=== PATIENT | female | born 1960 | race Caucasian/White ===

== ENCOUNTER 2017-01-28 16:34 | Emergency (ER) | payer OTHER ==
[~2017-01-28] VITALS: Ht 160 cm; Wt 112.0 kg
[~2017-01-28 16:34] MED LIST: 384 PO; A/B OTIC15 ML; ALAVERT10 M3 PO; ALLERGY10 MG PO; AMBIEN10 MG PO; AMBIENPAK10 MG PO; AMITRIPTYLINE H10 MG PO; AMITRIPTYLINE25 MG PO; ANTIVERT/2525 MG PO; APAP/HYDROCODON1 T13 PO; CARAFATE1 GM PO; CIPRO500 MG PO; CYCLOBENZAPRINE10 MG PO; DOC-Q-LACE PO; FLO4 PO; FLUTICASONE; FOLIC ACID PO; FOLIC ACID1 MG PO; GLU500 PO; IMITREX50 MG PO; KLOR-CON PO; LEVEMIR FLEX100 U/ML SQ; LEVEMIR100 U/M1 SQ; LINZESS145 MC1 PO; LINZESS145 MCG PO; MAG PO; MECLIZINE25 MG PO; METOCLOPRAMIDE10 MG PO; METOCLOPRAMIDE5 MG PO; MORPHINE SULFATE PO; NAMENDA10 M2 PO; NITROFURANTOIN100 M1 PO; OMEPRAZOLE PO; PAROXETINE HCL20 M1 PO; POTASSIUM CHLO10 MEQ PO; PRILOSEC40 MG PO; PROAIR PO; PROMETHAZINE12.5 M2 RC; PROPRANOLOL HCL40 MG PO; RANITIDINE300 MG PO; VENLAFAXINE100 MG PO; XAN5 PO; XANAX0.25 MG PO
[2017-01-28 23:05] VITALS: BP 119/75
== END 2017-01-28 19:00 | disposition home or self-care (01) ==
LOC: ED 16:34
DX: R60.0 Localized edema (principal); E66.9 Obesity, unspecified; M06.9 Rheumatoid arthritis, unspecified; M79.7 Fibromyalgia; K76.0 Fatty (change of) liver, not elsewhere classified; Z87.442 Personal history of urinary calculi

== ENCOUNTER 2017-09-17 04:09 | Inpatient (IN) | payer OTHER ==
[~2017-09-17] VITALS: Ht 160 cm; Wt 103.0 kg
[2017-09-17 05:29] LABS: microscopic required? YES; urine erythrocyte 2+ (NEGATIVE)
[2017-09-17 05:29] LABS: CARBON DIOXIDE 23.4 mmol/L (21-32); CREATININE SERUM 2.4 mg/dL (0.6-1.0); POTASSIUM SERUM 4.2 mmol/L (3.5-5.1)
[2017-09-17 05:34] LABS: BILIRUBIN TOTAL 2.2 mg/dL (0.20-1.00); TOTAL PROTEIN, SERUM 7.1 g/dL (6.4-8.2)
[2017-09-17 05:35] LABS: ALBUMIN 2.5 g/dL (3.4-5.0)
[2017-09-17 05:37] LABS: PLATELET COUNT 118 x10^3mcL (130-400); RED CELL DISTRIBUTION WIDTH 18.2 % (11.5-14.5)
[2017-09-17 05:46] LABS: CK-MB 5.2 ng/mL (0-3.6)
[2017-09-17] MEDS ORDERED: AMITRIPTYLINE H25 MG (05:56)
[2017-09-17] MEDS ORDERED: NOR10 (05:56)
[2017-09-17] MEDS ORDERED: BENAZEPRIL HYDR20 M1 (05:56)
[2017-09-17] MEDS ORDERED: CYCLOBENZAPRINE10 MG (05:58)
[2017-09-17] MEDS ORDERED: MECLIZINE HYDRO25 M1 (05:59)
[2017-09-17] MEDS ORDERED: LEVEMIR100 U/M1 (05:59)
[2017-09-17] MEDS ORDERED: FAMOTIDINE40 MG (05:59)
[2017-09-17] MEDS ORDERED: NAMENDA10 M2 (05:59)
[2017-09-17] MEDS ORDERED: METFORMIN HCL500 MG (06:00)
[2017-09-17] MEDS ORDERED: MORPHINE SULFAT30 M2 (06:00)
[2017-09-17] MEDS ORDERED: METOCLOPRAMIDE10 MG (06:00)
[2017-09-17] MEDS ORDERED: PAXIL10 MG (06:01)
[2017-09-17] MEDS ORDERED: NOR10T (06:01)
[2017-09-17] MEDS ORDERED: OMEPRAZOLE40 M1 (06:01)
[2017-09-17] MEDS ORDERED: OMEPRAZOLE5 GM (06:01)
[2017-09-17] MEDS ORDERED: POTASSIUM CHLO10 MEQ (06:01)
[2017-09-17] MEDS ORDERED: CARAFATE1 GM (06:02)
[2017-09-17] MEDS ORDERED: VICTOZA6 MG/M1 (06:02)
[2017-09-17] MEDS ORDERED: PROPRANOLOL HCL40 MG (06:02)
[2017-09-17] MEDS ORDERED: AMBIEN10 MG (06:03)
[2017-09-17 08:20] VITALS: BP 90/60
[2017-09-17 08:28] LABS: MAGNESIUM 1.6 mg/dL (1.8-2.4); PHOSPHOROUS 3.5 mg/dL (2.5-4.9)
[2017-09-17 08:36] LABS: CHOLESTEROL/HDL RATIO 12.8; FREE T4 1.19 ng/dL (0.76-1.46); FREE THYROXINE INDEX 2.6 ug/dL (1.4-4.5); T4(THYROXINE) 7.5 ug/dL (4.7-13.3)
[2017-09-17 08:46] LABS: T3 TOTAL 0.58 ng/mL
[2017-09-17 09:51] VITALS: BP 90/60
[2017-09-17 09:59] LABS: BAND NEUTROPHIL 19 % (0-10); BASOPHIL 0 % (0-2); METAMYELOCTE 2 % (0-2); MONOCYTE 10 % (0-7); SEGMENTED NEUTROPHILS 60 % (37-75)
[2017-09-17 10:01] LABS: rbc morphology (normal/abnorm) ABNORMAL (NORMAL)
[2017-09-17 10:39] LABS: AMPHETAMINE QUAL UR NONE DETECTED (NEG <=1000)
[2017-09-17 15:26] VITALS: BP 96/64
[2017-09-17 17:37] VITALS: BP 94/60
[2017-09-17 20:43] VITALS: BP 109/69
[2017-09-18 05:03] VITALS: BP 93/63
[2017-09-18 05:53] LABS: PLATELET COUNT 97 x10^3mcL (130-400); RED CELL DISTRIBUTION WIDTH 18.3 % (11.5-14.5)
[2017-09-18 06:08] LABS: CALCIUM 8.8 mg/dL (8.5-10.1); CARBON DIOXIDE 21.2 mmol/L (21-32); CREATININE SERUM 1.3 mg/dL (0.6-1.0); MAGNESIUM 1.7 mg/dL (1.8-2.4); PHOSPHOROUS 2.2 mg/dL (2.5-4.9); POTASSIUM SERUM 3.4 mmol/L (3.5-5.1)
[2017-09-18 07:30] VITALS: BP 101/61
[2017-09-18 08:47] LABS: BAND NEUTROPHIL 18 % (0-10); BASOPHIL 0 % (0-2); MONOCYTE 8 % (0-7); PLATELET MORPHOLOGY LARGE PLATELET SEEN; SEGMENTED NEUTROPHILS 64 % (37-75); rbc morphology (normal/abnorm) NORMAL (NORMAL)
[2017-09-18 09:46] VITALS: BP 101/61
[2017-09-18 18:01] VITALS: BP 103/64
[2017-09-18 20:08] VITALS: BP 90/56
[2017-09-19 05:02] VITALS: BP 134/88
[2017-09-19 06:32] LABS: PLATELET COUNT 113 x10^3mcL (130-400); RED CELL DISTRIBUTION WIDTH 17.8 % (11.5-14.5)
[2017-09-19 06:36] LABS: CALCIUM 9.1 mg/dL (8.5-10.1); CARBON DIOXIDE 20.7 mmol/L (21-32); CREATININE SERUM 1.1 mg/dL (0.6-1.0); MAGNESIUM 1.6 mg/dL (1.8-2.4); PHOSPHOROUS 3.7 mg/dL (2.5-4.9)
[2017-09-19 07:40] VITALS: BP 134/75
[2017-09-19 09:53] VITALS: BP 118/84
[2017-09-19 10:08] LABS: ATYPICAL LYMPH 1 %; BAND NEUTROPHIL 2 % (0-10); BASOPHIL 0 % (0-2); MONOCYTE 6 % (0-7); SEGMENTED NEUTROPHILS 89 % (37-75)
[2017-09-19 10:09] LABS: rbc morphology (normal/abnorm) ABNORMAL (NORMAL)
[2017-09-19 10:10] LABS: PLATELET MORPHOLOGY LARGE PLATELET SEEN
[2017-09-19 14:00] VITALS: BP 117/83
[2017-09-19 16:41] VITALS: BP 124/83
[2017-09-19 21:33] VITALS: BP 102/66
[2017-09-20 05:55] VITALS: BP 116/69
[2017-09-20 07:10] LABS: BASOPHIL % 0.1 % (0-2); CALCIUM 8.3 mg/dL (8.5-10.1); CARBON DIOXIDE 20.9 mmol/L (21-32); CHLORIDE SERUM 106 mmol/L (98-107); CREATININE SERUM 0.8 mg/dL (0.6-1.0); GFR1 > 60 mL/min; GLUCOSE SERUM 103 mg/dL (74-106); MAGNESIUM 1.6 mg/dL (1.8-2.4); PHOSPHOROUS 3.1 mg/dL (2.5-4.9); PLATELET COUNT 132 x10^3mcL (130-400); SODIUM SERUM 138 mmol/L (136-145)
[2017-09-20 07:17] LABS: POTASSIUM SERUM 2.8 mmol/L (3.5-5.1)
[2017-09-20 07:20] LABS: RED CELL DISTRIBUTION WIDTH 18.4 % (11.5-14.5)
[2017-09-20 17:05] VITALS: BP 118/82
[2017-09-20 18:45] LABS: CALCIUM 8.2 mg/dL (8.5-10.1); CARBON DIOXIDE 21.1 mmol/L (21-32); CHLORIDE SERUM 105 mmol/L (98-107); CREATININE SERUM 0.7 mg/dL (0.6-1.0); GFR1 > 60 mL/min; GLUCOSE SERUM 112 mg/dL (74-106); MAGNESIUM 2.9 mg/dL (1.8-2.4); POTASSIUM SERUM 3.1 mmol/L (3.5-5.1); SODIUM SERUM 136 mmol/L (136-145)
[2017-09-21 00:08] VITALS: BP 117/81
[2017-09-21 06:00] VITALS: BP 104/70
[2017-09-21 07:40] LABS: BASOPHIL % 0.3 % (0-2); PLATELET COUNT 144 x10^3mcL (130-400)
[2017-09-21 07:50] LABS: RED CELL DISTRIBUTION WIDTH 19.1 % (11.5-14.5)
[2017-09-21 08:06] LABS: CARBON DIOXIDE 21.8 mmol/L (21-32); CHLORIDE SERUM 105 mmol/L (98-107); CREATININE SERUM 0.8 mg/dL (0.6-1.0); GFR1 > 60 mL/min; GLUCOSE SERUM 80 mg/dL (74-106); MAGNESIUM 1.8 mg/dL (1.8-2.4); PHOSPHOROUS 3.2 mg/dL (2.5-4.9); POTASSIUM SERUM 3.2 mmol/L (3.5-5.1); SODIUM SERUM 136 mmol/L (136-145)
[2017-09-21 09:48] VITALS: BP 112/82
[2017-09-21 13:56] VITALS: BP 114/72
[2017-09-21 17:48] VITALS: BP 108/71
[2017-09-21 18:14] LABS: PLATELET COUNT 181 x10^3mcL (130-400)
[2017-09-21 18:30] LABS: RED CELL DISTRIBUTION WIDTH 18.6 % (11.5-14.5)
[2017-09-21 18:57] LABS: BAND NEUTROPHIL 2 % (0-10); MONOCYTE 4 % (0-7); SEGMENTED NEUTROPHILS 73 % (37-75)
[2017-09-21 18:58] LABS: rbc morphology (normal/abnorm) ABNORMAL (NORMAL)
[2017-09-21 20:08] VITALS: BP 115/85
[2017-09-22 05:21] VITALS: BP 117/79
[2017-09-22 06:31] LABS: CALCIUM 8.5 mg/dL (8.5-10.1); CARBON DIOXIDE 22.6 mmol/L (21-32); CHLORIDE SERUM 106 mmol/L (98-107); CREATININE SERUM 0.7 mg/dL (0.6-1.0); GFR1 > 60 mL/min; GLUCOSE SERUM 89 mg/dL (74-106); MAGNESIUM 1.6 mg/dL (1.8-2.4); PHOSPHOROUS 3.5 mg/dL (2.5-4.9); POTASSIUM SERUM 4.1 mmol/L (3.5-5.1); SODIUM SERUM 137 mmol/L (136-145)
[2017-09-22 06:44] LABS: PLATELET COUNT 152 x10^3mcL (130-400)
[2017-09-22 07:15] LABS: RED CELL DISTRIBUTION WIDTH 18.9 % (11.5-14.5)
[2017-09-22 09:05] VITALS: BP 124/80
[2017-09-22 11:22] LABS: BAND NEUTROPHIL 4 % (0-10); BASOPHIL 0 % (0-2); MONOCYTE 7 % (0-7); SEGMENTED NEUTROPHILS 74 % (37-75)
[2017-09-22 11:24] LABS: rbc morphology (normal/abnorm) ABNORMAL (NORMAL)
[2017-09-22 11:25] LABS: ovalocyte/elliptocyte 1+
[2017-09-22] MEDS ORDERED: BD LACTINEX1.4 MG PO (12:00)
[2017-09-22] MEDS ORDERED: BACTRIM1 TAB PO (12:06)
[2017-09-22] MEDS ORDERED: MAGNESIUM OXID400 MG PO (12:23)
[2017-09-22] MEDS ORDERED: MAG PO (12:24)
[2017-09-22 12:36] VITALS: BP 124/80
== END 2017-09-22 13:53 | disposition home health service (06) | DRG 871 ==
LOC: ED 04:09 → DU 06:02
PROVIDERS: Emergency Medicine; Family Medicine; ADMIT Family Medicine
DX: A41.9 Sepsis, unspecified organism (principal); N17.0 Acute kidney failure with tubular necrosis; G93.41 Metabolic encephalopathy; E43 Unspecified severe protein-calorie malnutrition; N39.0 Urinary tract infection, site not specified; N13.39 Other hydronephrosis; Z68.41 Body mass index [BMI] 40.0-44.9, adult; K76.6 Portal hypertension; R65.20 Severe sepsis without septic shock; B96.20 Unspecified Escherichia coli [E. coli] as the cause of diseases classified elsewhere; K72.90 Hepatic failure, unspecified without coma; R33.9 Retention of urine, unspecified; G30.9 Alzheimer's disease, unspecified; F02.80 Dementia in other diseases classified elsewhere, unspecified severity, without behavioral disturbance, psychotic disturbance, mood disturbance, and anxiety; M79.7 Fibromyalgia; M81.0 Age-related osteoporosis without current pathological fracture; M06.9 Rheumatoid arthritis, unspecified; E78.1 Pure hyperglyceridemia; E11.9 Type 2 diabetes mellitus without complications; K70.30 Alcoholic cirrhosis of liver without ascites; F10.20 Alcohol dependence, uncomplicated; F32.9 Major depressive disorder, single episode, unspecified; F12.10 Cannabis abuse, uncomplicated; F11.10 Opioid abuse, uncomplicated; F13.10 Sedative, hypnotic or anxiolytic abuse, uncomplicated; E66.01 Morbid (severe) obesity due to excess calories; Z16.24 Resistance to multiple antibiotics; Z79.4 Long term (current) use of insulin; Z79.891 Long term (current) use of opiate analgesic
CPT/HCPCS: 82962; 83880; 84439; 94150; 97110-GP; 97116-GP; 97530-GP; G0480; J0696; J0713; J1630; J1815; J1956; J2060; J3475; J3480; J3486; J7030; J7040; J8597; Q0092

== ENCOUNTER 2017-11-25 19:48 | Emergency (ER) | payer OTHER, MEDICAID ==
[~2017-11-25] VITALS: Ht 160 cm; Wt 91.6 kg
[~2017-11-25 19:48] MED LIST changes: +AMBIEN10 MG; +AMITRIPTYLINE H25 MG; +BACTRIM1 TAB PO; +BD LACTINEX1.4 MG PO; +BENAZEPRIL HYDR20 M1; +CARAFATE1 GM; +CYCLOBENZAPRINE10 MG; +FAMOTIDINE40 MG; +LEVEMIR100 U/M1; +MAGNESIUM OXID400 MG PO; +MECLIZINE HYDRO25 M1; +METFORMIN HCL500 MG; +METOCLOPRAMIDE10 MG; +MORPHINE SULFAT30 M2; +NAMENDA10 M2; +NOR10; +NOR10T; +OMEPRAZOLE40 M1; +OMEPRAZOLE5 GM; +PAXIL10 MG; +POTASSIUM CHLO10 MEQ; +PROPRANOLOL HCL40 MG; +VICTOZA6 MG/M1
[2017-11-25 19:55] VITALS: Ht 160 cm; Wt 91.6 kg
[2017-11-25 21:07] LABS: ALBUMIN 3.3 g/dL (3.4-5.0); ALKALINE PHOSPHATASE 126 U/L (46-116); ALT/SGPT 35 U/L (14-59); AST/SGOT 46 U/L (15-37); CALCIUM 8.8 mg/dL (8.5-10.1); CARBON DIOXIDE 24.2 mmol/L (21-32); CHLORIDE SERUM 103 mmol/L (98-107); CREATININE SERUM 0.7 mg/dL (0.6-1.0); GFR1 > 60 mL/min; GLUCOSE SERUM 120 mg/dL (74-106); SODIUM SERUM 139 mmol/L (136-145); TOTAL PROTEIN, SERUM 7.2 g/dL (6.4-8.2)
[2017-11-25 21:08] LABS: POTASSIUM SERUM 2.9 mmol/L (3.5-5.1)
[2017-11-25 21:42] LABS: PLATELET COUNT 111 x10^3mcL (130-400); RED CELL DISTRIBUTION WIDTH 17.3 % (11.5-14.5)
[2017-11-25 22:34] LABS: BAND NEUTROPHIL 9 % (0-10); BASOPHIL 0 % (0-2); MONOCYTE 11 % (0-7); SEGMENTED NEUTROPHILS 42 % (37-75)
[2017-11-25 22:36] LABS: rbc morphology (normal/abnorm) ABNORMAL (NORMAL); target cell (codocyte) 2+
[2017-11-25 23:54] VITALS: BP 114/75
== END 2017-11-25 23:54 | disposition home or self-care (01) ==
LOC: ED 19:48
PROVIDERS: Emergency Medicine
DX: T50.901A Poisoning by unspecified drugs, medicaments and biological substances, accidental (unintentional), initial encounter (principal); I10 Essential (primary) hypertension; E11.9 Type 2 diabetes mellitus without complications; M81.0 Age-related osteoporosis without current pathological fracture; Z90.710 Acquired absence of both cervix and uterus; Z88.0 Allergy status to penicillin; Y92.89 Other specified places as the place of occurrence of the external cause
CPT/HCPCS: 83880; J3480; J7050; Q0092

== ENCOUNTER 2020-09-18 16:15 | Emergency (ER) | payer OTHER ==
[~2020-09-18] VITALS: Ht 160 cm; Wt 68.0 kg
[2020-09-18 16:17] VITALS: BP 122/75; Ht 160 cm; Wt 68.0 kg
== END 2020-09-18 16:49 | disposition other institution (70) ==
LOC: ED 16:15
DX: Z02.89 Encounter for other administrative examinations (principal)

== ENCOUNTER 2020-09-19 11:11 | Emergency (ER) | payer OTHER ==
[~2020-09-19] VITALS: Ht 160 cm; Wt 86.6 kg
[2020-09-19 11:17] VITALS: Ht 160 cm; Wt 86.6 kg
[2020-09-19 14:42] LABS: PLATELET COUNT 130 x10^3mcL (130-400)
[2020-09-19 14:47] LABS: microscopic required? NO
[2020-09-19 14:47] LABS: RED CELL DISTRIBUTION WIDTH 21.9 % (11.5-14.5)
[2020-09-19 14:55] LABS: urine erythrocyte NEGATIVE (NEGATIVE)
[2020-09-19 14:58] LABS: ALBUMIN 3.6 g/dL (3.4-5.0); ALKALINE PHOSPHATASE 190 U/L (46-116); ALT/SGPT 54 U/L (14-59); AST/SGOT 81 U/L (15-37); BILIRUBIN TOTAL 1.7 mg/dL (0.20-1.00); CALCIUM 8.9 mg/dL (8.5-10.1); CARBON DIOXIDE 25.2 mmol/L (21-32); CHLORIDE SERUM 105 mmol/L (98-107); CREATININE SERUM 0.7 mg/dL (0.6-1.0); GFR1 > 60 mL/min; GLUCOSE SERUM 121 mg/dL (74-106); LIPASE 111 IU/L (73-393); MAGNESIUM 1.8 mg/dL (1.8-2.4); POTASSIUM SERUM 3.7 mmol/L (3.5-5.1); SODIUM SERUM 140 mmol/L (136-145); T4(THYROXINE) 6.4 ug/dL (4.7-13.3); TOTAL PROTEIN, SERUM 7.2 g/dL (6.4-8.2)
[2020-09-19 14:59] LABS: CHOLESTEROL 133 mg/dL (<200); HDL CHOLESTEROL 82 mg/dL (40-60)
[2020-09-19 15:10] VITALS: BP 138/74
[2020-09-19 15:31] LABS: AMPHETAMINE QUAL UR NONE DETECTED (See below)
[2020-09-19 15:56] LABS: BAND NEUTROPHIL 2 % (0-10); BASOPHIL 0 % (0-2); MONOCYTE 8 % (0-7); SEGMENTED NEUTROPHILS 80 % (37-75)
[2020-09-19 15:59] LABS: rbc morphology (normal/abnorm) ABNORMAL (NORMAL); schistocyte (helmet cell) 1+
== END 2020-09-19 15:39 | disposition home or self-care (01) ==
LOC: ED 11:11
PROVIDERS: Emergency Medicine
DX: S29.9XXA Unspecified injury of thorax, initial encounter (principal); I10 Essential (primary) hypertension; K74.60 Unspecified cirrhosis of liver; M06.9 Rheumatoid arthritis, unspecified; I45.10 Unspecified right bundle-branch block; F12.10 Cannabis abuse, uncomplicated; E66.01 Morbid (severe) obesity due to excess calories; E11.9 Type 2 diabetes mellitus without complications; M79.7 Fibromyalgia; Z87.442 Personal history of urinary calculi; Z90.711 Acquired absence of uterus with remaining cervical stump; Z88.0 Allergy status to penicillin; Z88.1 Allergy status to other antibiotic agents; Z91.013 Allergy to seafood; Z68.33 Body mass index [BMI] 33.0-33.9, adult; V48.5XXA Car driver injured in noncollision transport accident in traffic accident, initial encounter; Y93.I9 Activity, other involving external motion; Y92.488 Other paved roadways as the place of occurrence of the external cause; Y99.8 Other external cause status
CPT/HCPCS: 82962; 83880; G0480; Q9967